=== PATIENT | male | born 1975 | race Two or more races ===

== ENCOUNTER 2017-02-08 17:56 | Emergency (ER) | payer SELFPAY ==
[~2017-02-08] VITALS: Ht 182.9 cm; Wt 92.5 kg
[2017-02-08 19:18] VITALS: BP 190/11
[2017-02-08] MEDS ORDERED: KETOROLAC TROMETHAMINE INJ 30 MG/ML VIAL ONE (20:44)
[2017-02-08] MEDS ORDERED: KETOROLAC TROMETHAMINE INJ 60 MG/2 ML VIAL IM ONE (21:00)
== END 2017-02-08 22:06 | disposition home or self-care (01) ==
LOC: ER 18:01
DX: S39.012A Strain of muscle, fascia and tendon of lower back, initial encounter (principal); M51.26 Other intervertebral disc displacement, lumbar region; F12.90 Cannabis use, unspecified, uncomplicated; F17.200 Nicotine dependence, unspecified, uncomplicated; V43.52XA Car driver injured in collision with other type car in traffic accident, initial encounter; Y93.89 Activity, other specified; Y92.89 Other specified places as the place of occurrence of the external cause; Y99.8 Other external cause status
CPT/HCPCS: 72131; 96372; 99284; 99406; A4606; J1885; Z7610